=== PATIENT | male | born 1970 | race Caucasian/White ===

== ENCOUNTER → 2018-07-26 | Outpatient (CLI) | payer OTHER ==
[~2018-07-26] MED LIST: BARIUM SULFATE 60% 355 ML SUSP PO ONE; BARIUM SULFATE 98% 135 ML SUSP PO ONE; SIMETHICONE/SOD BICARB/CITRIC ACID PACKET. PO ONE
--- NOTE | 2018-07-26 16:13 | RAD ---
ESOPHAGRAM 07/18/2018. Reason for study: Chest pain. Comparison studies: None. Technique: Esophagram was performed utilizing double contrast upright examination, single contrast prone examination, and cine evaluation of cervical esophageal swallow function. Fluoroscopy time: 1.2 minutes Number of images: 9 Findings: Barium swallow was performed without difficulty. Esophageal peristalsis and motility were normal. No mucosal abnormalities. No gastroesophageal reflux or hiatal hernia. No esophageal diverticulum. Fundus of the stomach was unremarkable. 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 IMPRESSION: 1. 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 2. No significant hiatal hernia. Electronically signed by: Archana Ramírez MD (07/26/2018 2:40 PM) [id number]
== END | disposition home or self-care (01) ==
LOC: RAD 09:11
PROVIDERS: ATTEND Physician Assistant
DX: R07.9 Chest pain, unspecified (principal)
CPT/HCPCS: 74220

== ENCOUNTER → 2020-04-19 | Outpatient (CLI) | payer OTHER ==
--- NOTE | 2020-04-19 11:07 | RAD ---
EXAMINATION: ESOPHOGRAM/BARIUM SWALLOW (ESOPHAGRAM) CLINICAL HISTORY: Dysphasia Technique: Double contrast esophagram performed utilizing effervescent granules followed by oral administration of thick and thin barium. - Number of Images: 11 - Fluoroscopy Time: 0.9 minutes Comparison: 07/26/2018 FINDINGS: Hypopharynx and cervical esophagus unremarkable. No evidence of esophageal stricture, ring, or mass. No evidence of esophagitis. No hiatal hernia. No reflux elicited despite provocative maneuvers. Esophageal motility within normal limits. Barium tablet passeD through the esophagus with ease without reproduction of patient's symptoms. IMPRESSION: Unremarkable esophagram. Electronically signed by: Lopez Gonzalez DO (04/19/2020 11:04 AM) [id number]
== END | disposition home or self-care (01) ==
LOC: RAD 08:15
PROVIDERS: ATTEND Physician Assistant
DX: K22.4 Dyskinesia of esophagus (principal); R13.10 Dysphagia, unspecified
CPT/HCPCS: 74220